=== PATIENT | female | born 1990 | race Hispanic/Latino ===

== ENCOUNTER 2017-07-14 09:29 | Emergency (ER) | payer OTHER, SELFPAY ==
[2017-07-14 10:07] LABS: #Basophils 0.1 thou/uL (0.0-0.2); #Eosinphils 0.2 thou/uL (0.0-0.7); #Lymphocytes 1.7 thou/uL (1.20-3.40); #Monocytes 0.5 thou/uL (0.11-0.59); #Neutrophils 7.2 thou/uL (1.40-6.50); %Basophils 0.7 % (0.0-1.0); %Eosinophils 2.2 % (0.0-10.0); %Lymphocytes 17.8 % (21.0-51.0); %Monocytes 4.7 % (0.0-10.0); %Neutrophils 74.6 % (42.0-75.0); Hemoglobin 13.7 g/dL (12.0-16.0); Mean Corpuscular HGB CONC 33.5 g/dL (32.0-36.0); Mean Corpuscular Hemoglobin 29.4 pg (27.0-31.0); Mean Corpuscular Volume 87.6 fl (81.0-99.0); Mean Platelet Volume 6.1 fL (7.4-10.4); Platelet Count 275 thou/uL (130-400); RBC Distribution Width 11.9 % (11.5-14.5); Red Blood Cell (RBC) Count 4.66 mill/uL (4.20-5.40); White Blood Cell (WBC) Count 9.6 thou/uL (4.8-10.8)
[2017-07-14 10:17] LABS: Bilirubin Negative (Negative); Blood, Urine Moderate (Negative); Clarity Clear (Clear); Glucose, Urine (Dipstick) Negative (Negative); Leukocyte Negative (Negative); Nitrite Negative (Negative); Protein, Urine (Dipstick) Negative (Neg-Trace); pH, Urine 7.5 (5.0-9.0)
[2017-07-14 10:28] LABS: RBC/HPF 0-3 HPF (0-3); Squamous Epithelial 0-3 HPF (0-3); WBC/HPF 0-3 HPF (0-3)
[2017-07-14 10:29] LABS: Bacteria/HPF Rare-Few HPF (None Seen)
--- NOTE | 2017-07-14 11:07 | ULT ---
PELVIC ULTRASOUND INCLUDING TRANSVAGINAL AND TRANSABDOMINAL AND VASCULAR DUPLEX WITH COLOR AND SPECTR AL DOPPLER IMAGING: HISTORY: A 27-year-old female with a history of pelvic pain, vaginal spotting, and a history of a positive pre gnancy test. FINDINGS: The uterus measures 8.2 x 4.2 x 3.8 cm. The endometrium is 0.6 cm. The right ovary measures 1.6 x 1 .7 x 2.3 cm. The left ovary measures 1.5 x 1.7 x 2 cm. Trace cul-de-sac fluid. No evidence for an intrauterine gestational sac. No evidence for an obvious extrauterine . IMPRESSION: Unremarkable pelvic ultrasound. No evidence for an intrauterine or extrauterine gestational sac. Continue short-term follow-up serum hCGs and, if they indicate evidence for , a follow-up pe lvic ultrasound might be considered. POS: [facility]
[2017-07-17 22:22] LABS: Chlamydia by PCR Not Detected (NotDetected); GC by PCR Not Detected (NotDetected)
== END 2017-07-14 11:15 | disposition home or self-care (01) ==
LOC: SCSER 09:29
DX: N93.9 Abnormal uterine and vaginal bleeding, unspecified (principal); R10.2 Pelvic and perineal pain; F17.210 Nicotine dependence, cigarettes, uncomplicated
CPT/HCPCS: 76856; 81003; 81015; 84702; 85025; 86900; 86901; 87480; 87491; 87510; 87591; 87660